=== PATIENT | female | born 1990 | race Caucasian/White ===

== ENCOUNTER 2016-08-21 14:53 | Emergency (ER) | payer OTHER ==
[2016-08-21 14:15] LABS: BASOPHILS 0.1 %; BASOPHILS ABSOLUTE 0.01 10/3/uL (0.0-0.16); HEMATOCRIT 39.4 % (36.0-48.0); HEMOGLOBIN 13.9 g/dL (12.0-16.0); IMMATURE GRANULOCYTES 0.2 %; IMMATURE GRANULOCYTES ABSOLUTE 0.02 10/3/uL (0.0-0.11); LYMPHOCYTES 16.5 %; LYMPHOCYTES ABSOLUTE 1.59 10/3/uL (0.67-4.30); MANUAL DIFF NO %; MEAN CORPUS HGB CONC 35.3 g/dL (32.0-36.0); MEAN CORPUSCULAR HEMOGLOB 30.3 pg (26.0-34.0); MEAN CORPUSCULAR VOLUME 85.8 fL (80-100); MEAN PLATELET VOLUME 10.7 fL (9.2-13.0); MONOCYTES 6.3 %; MONOCYTES ABSOLUTE 0.61 10/3/uL (0.21-1.20); NEUTROPHILS 75.9 %; NEUTROPHILS ABSOLUTE 7.32 10/3/uL (2.02-8.40); PLATELET COUNT 313 10/3/uL (150-400); RBC DISTRIBUTION WIDTH 12.5 % (12.0-16.0); RED CELL COUNT 4.59 10/6/uL (4.0-5.6); WHITE BLOOD CELLS 9.7 10/3/uL (4.5-10.5)
[2016-08-21 14:33] LABS: ALBUMIN 3.6 G/DL (3.5-5.0); ALKALINE PHOSPHATASE 67 U/L (45-117); BUN (BLOOD UREA NITROGEN) 8 MG/DL (6-23); CHLORIDE, SERUM 108 MMOL/L (96-112); CO2 (CARBON DIOXIDE) 25 MMOL/L (24-34); CREATININE 0.71 MG/DL (0.55-1.02); GFR AFRICAN AMERICAN 138 ML/MIN (>=60); GFR NON AFRICAN AMERICAN 119 ML/MIN (>=60); GLOBULIN 3.7 G/DL (2.5-4.1); GLUCOSE, SERUM 90 MG/DL (60-99); INFLUENZA A SCREEN NEGATIVE (NEGATIVE); INFLUENZA B SCREEN NEGATIVE (NEGATIVE); POTASSIUM, SERUM 3.7 MMOL/L (3.5-5.3); SGOT(AST) 11 U/L (5-40); SGPT(ALT) 17 U/L (5-65); SODIUM, SERUM 139 MMOL/L (135-148); TOTAL BILIRUBIN 0.5 MG/DL (0-1.2); TOTAL PROTEIN 7.3 G/DL (6.0-8.5)
[2016-08-21 14:41] LABS: CALCIUM, SERUM 9.1 MG/DL (8.5-10.4)
== END 2016-08-21 14:55 | disposition home or self-care (01) ==
LOC: ER 14:53
PROVIDERS: Nurse Practitioner Acute Care
DX: B34.9 Viral infection, unspecified (principal); M79.81 Nontraumatic hematoma of soft tissue
CPT/HCPCS: 71020; 80053; 85025; 87804; 94640; 96372; 99285; J2930

== ENCOUNTER 2016-09-18 09:58 | Emergency (ER) | payer OTHER ==
[2016-09-18 09:59] LABS: BASOPHILS 0.2 %; BASOPHILS ABSOLUTE 0.03 10/3/uL (0.0-0.16); EOSINOPHILS 2.1 %; EOSINOPHILS ABSOLUTE 0.26 10/3/uL (0.0-0.53); ER CBC TAT 0 Hrs 05 Mins; HEMATOCRIT 40.4 % (36.0-48.0); HEMOGLOBIN 14.1 g/dL (12.0-16.0); IMMATURE GRANULOCYTES 0.3 %; IMMATURE GRANULOCYTES ABSOLUTE 0.04 10/3/uL (0.0-0.11); LYMPHOCYTES 11.6 %; LYMPHOCYTES ABSOLUTE 1.45 10/3/uL (0.67-4.30); MANUAL DIFF NO %; MEAN CORPUS HGB CONC 34.9 g/dL (32.0-36.0); MEAN CORPUSCULAR HEMOGLOB 30.3 pg (26.0-34.0); MEAN CORPUSCULAR VOLUME 86.9 fL (80-100); MEAN PLATELET VOLUME 10.7 fL (9.2-13.0); MONOCYTES 5.5 %; MONOCYTES ABSOLUTE 0.69 10/3/uL (0.21-1.20); NEUTROPHILS 80.3 %; NEUTROPHILS ABSOLUTE 10.07 10/3/uL (2.02-8.40); PLATELET COUNT 274 10/3/uL (150-400); RBC DISTRIBUTION WIDTH 13.1 % (12.0-16.0); RED CELL COUNT 4.65 10/6/uL (4.0-5.6); WHITE BLOOD CELLS 12.5 10/3/uL (4.5-10.5)
[2016-09-18 10:08] LABS: ASCORBIC ACID (UR NOT ORDER) NEG (NEG); BILIRUBIN, URINE NEGATIVE (NEG); ER URINALYSIS TAT 0 Hrs 14 Mins; KETONE, URINE 80 MG/DL (NEG); LEUKOCYTE ESTERASE(NOT OR SMALL (NEG); NITRITE (URINE) NEG (NEG); WBC (NOT ORDERED) (RFLEX) 12 (0-5)
[2016-09-18 10:14] LABS: A/G RATIO 0.9 (0.7-1.9); ALBUMIN 3.8 G/DL (3.5-5.0); ALKALINE PHOSPHATASE 74 U/L (45-117); BUN (BLOOD UREA NITROGEN) 10 MG/DL (6-23); CALCIUM, SERUM 9.2 MG/DL (8.5-10.4); CHLORIDE, SERUM 107 MMOL/L (96-112); CO2 (CARBON DIOXIDE) 23 MMOL/L (24-34); CREATININE 0.76 MG/DL (0.55-1.02); GFR AFRICAN AMERICAN 127 ML/MIN (>=60); GFR NON AFRICAN AMERICAN 110 ML/MIN (>=60); GLOBULIN 4.1 G/DL (2.5-4.1); GLUCOSE, SERUM 85 MG/DL (60-99); POTASSIUM, SERUM 3.5 MMOL/L (3.5-5.3); SGOT(AST) 26 U/L (5-40); SGPT(ALT) 25 U/L (5-65); SODIUM, SERUM 139 MMOL/L (135-148); TOTAL PROTEIN 7.9 G/DL (6.0-8.5)
[2016-09-18 14:14] LABS: SOURCE: FEMALE URINE
[2016-09-18 14:16] LABS: CHLAMYDIA TRACH PCR DETECTED (NOT DETEC); GC PCR NOT DETECTED (NOT DETECT)
== END 2016-09-18 16:40 | disposition home or self-care (01) ==
LOC: ER 09:58
PROVIDERS: Emergency Medicine
DX: E86.0 Dehydration (principal); R10.2 Pelvic and perineal pain; A56.8 Sexually transmitted chlamydial infection of other sites; Z79.899 Other long term (current) drug therapy
CPT/HCPCS: 71020; 74176; 76830; 76856; 80053; 81001; 83690; 84703; 85025; 87086; 87210; 87491; 87591; 96361; 96372; 96374; 99285; A9270-GY; J0696; J2405

== ENCOUNTER 2016-09-23 02:29 | Emergency (ER) | payer OTHER ==
[2016-09-23 02:32] LABS: ASCORBIC ACID (UR NOT ORDER) NEG (NEG); BILIRUBIN, URINE NEGATIVE (NEG); ER URINALYSIS TAT 0 Hrs 00 Mins; KETONE, URINE NEGATIVE (NEG); LEUKOCYTE ESTERASE(NOT OR NEG (NEG); NITRITE (URINE) NEG (NEG); WBC (NOT ORDERED) (RFLEX) 4 (0-5)
[2016-09-23 04:10] LABS: CHLAMYDIA TRACH PCR NOT DETECTED (NOT DETEC); GC PCR NOT DETECTED (NOT DETECT); SOURCE: FEMALE URINE
== END 2016-09-23 05:05 | disposition home or self-care (01) ==
LOC: ER 02:29
PROVIDERS: Nurse Practitioner Acute Care
DX: R10.30 Lower abdominal pain, unspecified (principal)
CPT/HCPCS: 81001; 87491; 87591; 99284

== ENCOUNTER 2016-11-16 23:58 | Observation (INO) | payer OTHER ==
--- NOTE | ~2016-11-16 | DS ---
Discharge Summary [address] [place]. [address] NAME: ISMAELKO CAMARENA : 89 STATUS : DIS Gaetano PAT#: [id number] AGE: 26 ADM/REG DATE : 11/16/16 MR#: [id number] REPORT SERV DATE: 11/17/16 DICTATED BY: SPENCER RAMIREZ DATE: 11/17/16 REPORT STATUS : Draft TRANSCRIBED BY: MODL DATE: 11/17/16 ADMISSION DATE: 11/16/2016 DISCHARGE DATE: 11/17/2016 DISCHARGE DIAGNOSES: 1. Pneumococcal community-acquired pneumonia on the right side. 2. Nausea, vomiting, and diarrhea which had subsided. CONSULTANTS: None. PROCEDURES: None. HOSPITAL COURSE: This is a 26-year-old lady who was admitted to the hospital with a right- sided pneumonia. For details, please refer to excellent H and P dictated by Dr. Ramesh Martinez. In summary, the patient was admitted and was treated with IV Levaquin with significant improvement of her symptoms just overnight. The patient was admitted with a white blood cell count of 21,000, however, the patient's white blood cell count improved to 12,000 just overnight. The patient's urine antigen for Strep pneumo did come back positive, suggesting the patient has a pneumococcal pneumonia. The patient was otherwise afebrile and hemodynamically stable and not requiring any oxygen support to maintain adequate oxygen saturations. The patient was felt appropriate for discharge to home with home antibiotic therapy. DISPOSITION: Home. DISCHARGE MEDICATIONS: Levaquin 750 mg p.o. daily for the next five days. Otherwise, no medication changes. FOLLOWUP: Please follow up with PCP in the next one to two weeks. A total of 25 minutes spent in coordinating this patient's discharge today. DICTATED BY: Spencer Ramirez MD [facility] [place] Spencer Ramirez MD / [id number] CC: Spencer Ramirez MD Discharge Summary [address] [place]. [address] NAME: KO GUEVARA : 89 STATUS : DIS Gaetano PAT#: [id number] AGE: 26 ADM/REG DATE : 11/16/16 MR#: [id number] REPORT SERV DATE: 11/17/16 DICTATED BY: SPENCER RAMIREZ DATE: 11/17/16 REPORT STATUS : Draft TRANSCRIBED BY: BROOKE DATE: 11/17/16 Kathryn Bautista M.D.
--- NOTE | ~2016-11-16 | HP ---
History And Physical [address] [address] NAME: KO GUEVARAN : 89 STATUS : ADM Gaetano PAT#: [id number] AGE: 26 ADM/REG DATE : 11/16/16 MR#: [id number] REPORT SERV DATE: 11/17/16 DICTATED BY: ASHLEE ROBERTS DATE: 11/17/16 REPORT STATUS : Draft TRANSCRIBED BY: MODL DATE: 11/17/16 DATE OF ADMISSION: 11/16/2016 CHIEF COMPLAINT: A 26-year-old female, presenting with cough and drenching diaphoresis. HISTORY OF PRESENT ILLNESS: The patient's history was obtained through careful interview with the patient, coupled with review of [facility] medical records. For couple days now the patient has had a cough productive of a thick yellow sputum. She has had increasing shortness of breath characterized by dyspnea on exertion, and has had subjective fevers, chills, and rigors. She describes night sweats, and on the evening leading up to this admission was drenched with sweats. She also has developed nausea, vomiting, weakness to the point where she was having difficulty walking this evening. She has had some diarrhea. No lightheadedness. No confusion. She describes a discomfort at the base of her right lung, aching quality, up to 10/10 severity exacerbated by coughing. She has had myalgias and just body aches throughout. REVIEW OF SYSTEMS: Otherwise, a 14-point review of systems was obtained, was negative. PAST MEDICAL HISTORY: 1. Ovarian cyst. 2. IUD. 3. No pneumonia, no asthma. PAST SURGICAL HISTORY: Denies any. ALLERGIES: NO KNOWN DRUG ALLERGIES. SOCIAL HISTORY: Works at [employer] as a [employer]. She is single. Has twin 5-year-old children, a son and a daughter. No tobacco abuse. No alcohol abuse. FAMILY HISTORY: Mother with bipolar disorder and schizophrenia. Father with abdominal aortic aneurysm with what sounds like a dissection. CURRENT MEDICATIONS: Denies any. PHYSICAL EXAMINATION: VITAL SIGNS: Temperature 98.2, pulse 86, blood pressure 145/77, respiratory rate 18, and O2 saturation 95% on room air. History And Physical [address] [address] NAME: ISMAELKO NICOL : 89 STATUS : ADM Gaetano PAT#: [id number] AGE: 26 ADM/REG DATE : 11/16/16 MR#: [id number] REPORT SERV DATE: 11/17/16 DICTATED BY: ASHLEE ROBERTS DATE: 11/17/16 REPORT STATUS : Draft TRANSCRIBED BY: BROOKE DATE: 11/17/16 GENERAL: A pleasant, cooperative female, in no evidence of acute distress. HEENT: Pupils equal, round, and reactive to light. No conjunctival pallor. No scleral icterus. Nares are patent. Oropharynx is clear of obstruction. Dry mucous membranes. NECK: Trachea midline. No thyromegaly. LYMPH: No cervical lymphadenopathy. No supraclavicular lymphadenopathy. RESPIRATORY: The patient does have scattered rhonchi throughout the right lung with diminished breath sounds. No focal egophony can be appreciated though. No wheezes. Labored respiratory effort is noted. CARDIOVASCULAR: Regular rate and rhythm. No murmurs, rubs, or gallops. No extremity edema is appreciated. ABDOMEN: Soft, nontender, and nondistended. Normal bowel sounds auscultated throughout. No hepatosplenomegaly. DERMATOLOGICAL: Diaphoretic moist extremities. No pallor. No cyanosis. PSYCHIATRIC: Normal affect. Good mood. Alert and oriented x3. LABORATORY DATA: White blood cell count 21.3, hematocrit 43, and platelets 211. Sodium 140, potassium 3.6, chloride 108, bicarb 22, BUN 10, creatinine 0.81, and glucose 90. Urinalysis negative for infection. HCG negative. Lactic acid 0.9. Liver enzymes within normal limits. STUDIES: 1. Chest x-ray by my own evaluation shows right-sided pneumonia changes. 2. CT scan of the abdomen and pelvis shows no acute intraabdominal process, but confirms right lower lung pneumonia. ASSESSMENT AND PLAN: 1. Community-acquired pneumonia on the right side. Check blood cultures. Place on IV antibiotics. Check sputum culture. 2. Nausea, vomiting, diarrhea. Monitor closely and provide supportive care. KPL/MODL Ashlee Roberts M.D. / [id number] CC: History And Physical [address] [address] NAME: KO GUEVARA : 89 STATUS : ADM Gaetano PAT#: [id number] AGE: 26 ADM/REG DATE : 11/16/16 MR#: [id number] REPORT SERV DATE: 11/17/16 DICTATED BY: ASHLEE ROBERTS DATE: 11/17/16 REPORT STATUS : Draft TRANSCRIBED BY: BROOKE DATE: 11/17/16 ANISH RAMIREZ M.D.
[2016-11-16 21:39] LABS: BASOPHILS 0.1 %; BASOPHILS ABSOLUTE 0.02 10/3/uL (0.0-0.16); EOSINOPHILS 0 %; EOSINOPHILS ABSOLUTE 0.01 10/3/uL (0.0-0.53); HEMATOCRIT 43.3 % (36.0-48.0); HEMOGLOBIN 15.5 g/dL (12.0-16.0); IMMATURE GRANULOCYTES 0.4 %; IMMATURE GRANULOCYTES ABSOLUTE 0.08 10/3/uL (0.0-0.11); LYMPHOCYTES 8.5 %; LYMPHOCYTES ABSOLUTE 1.81 10/3/uL (0.67-4.30); MEAN CORPUS HGB CONC 35.8 g/dL (32.0-36.0); MEAN CORPUSCULAR HEMOGLOB 31.5 pg (26.0-34.0); MEAN PLATELET VOLUME 10.8 fL (9.2-13.0); MONOCYTES 3.1 %; MONOCYTES ABSOLUTE 0.66 10/3/uL (0.21-1.20); NEUTROPHILS 87.9 %; NEUTROPHILS ABSOLUTE 18.69 10/3/uL (2.02-8.40); PLATELET COUNT 211 10/3/uL (150-400); RBC DISTRIBUTION WIDTH 13.2 % (12.0-16.0); RED CELL COUNT 4.92 10/6/uL (4.0-5.6)
[2016-11-16 21:41] LABS: ER CBC TAT 0 Hrs 07 Mins; MANUAL DIFF NO %; WHITE BLOOD CELLS 21.3 10/3/uL (4.5-10.5)
[2016-11-16 21:50] LABS: ASCORBIC ACID (UR NOT ORDER) NEG (NEG); BILIRUBIN, URINE NEGATIVE (NEG); ER URINALYSIS TAT 0 Hrs 16 Mins; KETONE, URINE 80 MG/DL (NEG); LEUKOCYTE ESTERASE(NOT OR NEG (NEG); NITRITE (URINE) NEG (NEG); WBC (NOT ORDERED) (RFLEX) 4 (0-5)
[2016-11-16 21:56] LABS: ALBUMIN 3.8 G/DL (3.5-5.0); BUN (BLOOD UREA NITROGEN) 10 MG/DL (6-23); CALCIUM, SERUM 9.8 MG/DL (8.5-10.4); CHLORIDE, SERUM 108 MMOL/L (96-112); CO2 (CARBON DIOXIDE) 22 MMOL/L (24-34); CREATININE 0.81 MG/DL (0.55-1.02); GFR AFRICAN AMERICAN 117 ML/MIN (>=60); GFR NON AFRICAN AMERICAN 101 ML/MIN (>=60); GLUCOSE, SERUM 90 MG/DL (60-99); POTASSIUM, SERUM 3.6 MMOL/L (3.5-5.3); SGOT(AST) 10 U/L (5-40); SGPT(ALT) 16 U/L (5-65); SODIUM, SERUM 140 MMOL/L (135-148); TOTAL PROTEIN 7.8 G/DL (6.0-8.5)
[2016-11-16 21:57] LABS: ALKALINE PHOSPHATASE 62 U/L (45-117)
[2016-11-17 00:20] LABS: PROCALCITONIN 0.09 ng/mL (<0.5)
[2016-11-17 10:29] LABS: BASOPHILS 0.2 %; BASOPHILS ABSOLUTE 0.02 10/3/uL (0.0-0.16); EOSINOPHILS 0.4 %; EOSINOPHILS ABSOLUTE 0.05 10/3/uL (0.0-0.53); HEMATOCRIT 39.6 % (36.0-48.0); HEMOGLOBIN 13.8 g/dL (12.0-16.0); IMMATURE GRANULOCYTES 0.2 %; IMMATURE GRANULOCYTES ABSOLUTE 0.03 10/3/uL (0.0-0.11); LYMPHOCYTES 15.3 %; LYMPHOCYTES ABSOLUTE 1.96 10/3/uL (0.67-4.30); MEAN CORPUS HGB CONC 34.8 g/dL (32.0-36.0); MEAN CORPUSCULAR HEMOGLOB 31.1 pg (26.0-34.0); MEAN CORPUSCULAR VOLUME 89.2 fL (80-100); MEAN PLATELET VOLUME 10.9 fL (9.2-13.0); MONOCYTES 4.5 %; MONOCYTES ABSOLUTE 0.58 10/3/uL (0.21-1.20); NEUTROPHILS 79.4 %; PLATELET COUNT 173 10/3/uL (150-400); RBC DISTRIBUTION WIDTH 13.4 % (12.0-16.0); RED CELL COUNT 4.44 10/6/uL (4.0-5.6); WHITE BLOOD CELLS 12.8 10/3/uL (4.5-10.5)
[2016-11-17 10:34] LABS: MANUAL DIFF NO %
[2016-11-17 10:36] LABS: INTERNATIONAL NORMAL RATI 1.3 UNITS (-); PROTIME (NOT ORD) 16.3 SEC (12.0-14.5)
[2016-11-17 10:51] LABS: A/G RATIO 0.9 (0.7-1.9); ALBUMIN 3.4 G/DL (3.5-5.0); ALKALINE PHOSPHATASE 57 U/L (45-117); BUN (BLOOD UREA NITROGEN) 10 MG/DL (6-23); CHLORIDE, SERUM 108 MMOL/L (96-112); CO2 (CARBON DIOXIDE) 24 MMOL/L (24-34); CREATININE 0.82 MG/DL (0.55-1.02); GFR AFRICAN AMERICAN 115 ML/MIN (>=60); GFR NON AFRICAN AMERICAN 99 ML/MIN (>=60); GLUCOSE, SERUM 83 MG/DL (60-99); POTASSIUM, SERUM 3.4 MMOL/L (3.5-5.3); SGOT(AST) 10 U/L (5-40); SGPT(ALT) 15 U/L (5-65); SODIUM, SERUM 141 MMOL/L (135-148); TOTAL BILIRUBIN 0.6 MG/DL (0-1.2); TOTAL PROTEIN 7.4 G/DL (6.0-8.5); TROPONIN I <0.02 NG/ML (<0.05)
[2016-11-17 11:39] LABS: PROCALCITONIN 0.11 ng/mL (<0.5)
[2016-11-17] MEDS ORDERED: LEVAQUIN750 MG PO (11:57)
[2016-11-17] MEDS ORDERED: ZOFRAN ODT4 MG PO (13:11)
[2016-11-17] MEDS ORDERED: PCET PO (13:12)
== END 2016-11-17 13:52 | disposition home or self-care (01) ==
LOC: ER 23:58 → 4SO 23:59
PROVIDERS: Emergency Medicine; Internal Medicine
DX: J13 Pneumonia due to Streptococcus pneumoniae (principal); R11.2 Nausea with vomiting, unspecified; R19.7 Diarrhea, unspecified; Z79.899 Other long term (current) drug therapy
CPT/HCPCS: 71010; 74176; 80053; 81001; 83605; 83690; 83735; 83880; 84145; 84443; 84484; 84703; 85025; 85610; 85730; 87040; 87449; 94640; 96360; 96376; 99285; A9270-GY; G0378; J1956; J2405